=== PATIENT | female | born 1985 | race Caucasian/White ===

== ENCOUNTER 2017-04-22 14:42 | Emergency (ER) | payer SELFPAY ==
[~2017-04-22] VITALS: Ht 162.6 cm; Wt 97.7 kg
[2017-04-22] MEDS ORDERED: WELLBUTRIN SR150 MG PO (15:27)
[2017-04-22] MEDS ORDERED: PROZAC40 MG PO (15:27)
[2017-04-22] MEDS ORDERED: TOPIRAMATE25 MG PO (15:27)
[2017-04-22] MEDS ORDERED: ALPRAZOLAM1 MG PO (15:28)
[2017-04-22 16:40] VITALS: BP 122/75
== END 2017-04-22 16:45 | disposition home or self-care (01) ==
LOC: EME 14:42
DX: F32.9 Major depressive disorder, single episode, unspecified (principal); F41.0 Panic disorder [episodic paroxysmal anxiety]; F12.10 Cannabis abuse, uncomplicated; Z72.0 Tobacco use
CPT/HCPCS: 80048; 81003; 84703; 85027; 90839; 99281; 99284